=== PATIENT | female | born 1955 | race Caucasian/White ===

== ENCOUNTER 2025-03-28 11:56 | Outpatient (CLI) | payer OTHER, MEDICAID, SELFPAY ==
[2025-03-28 12:33] LABS: Hematocrit 44.0 % (37.0-47.0); Hemoglobin 14.9 g/dL (12.0-15.0); Mean Corpuscular HGB Conc 33.9 g/dl (32-36); Mean Corpuscular Hemoglobin 29.0 pg (26-34); Mean Corpuscular Volume 85.8 fl (80-100); Platelet Count Result 181 k/mm3 (150-375); Red Blood Count 5.13 M/mm3 (4.2-5.4); White Blood Count 6.7 K/mm3 (4.5-10.0)
[2025-03-28 12:43] LABS: INR 0.9; Prothrombin Time 12.6 Seconds (11.1-14.7)
[2025-03-28 12:56] LABS: Anion Gap 9 mmol/L (4-12); Blood Urea Nitrogen 21 mg/dL (7-17); Calcium 9.3 mg/dL (8.4-10.2); Carbon Dioxide 28 mmol/L (22-30); Chloride 101 mmol/L (98-107); Estimated Glomerular Filt Rate > 60; Glucose 117 mg/dL (65-110); Potassium 3.5 mmol/L (3.4-5.0); Sodium 138 mmol/L (137-145)
--- OUTSIDE RECORDS SUMMARY | 2025-03-28 13:34 | XMS_ITS | Encounter Summary ---
Author Organization [facility] Healthcare Address [address] [place] [address] Care Team Providers Care Federal Appellate Law Clerk Name Role Phone Valentino Zhao MD Unavailable Hitesh Em MD Unavailable Luca Jensen NP Primary Care Provider [phone] Luis Angel Manzanares NP Unavailable [phone] Encounter Details Date Type Department Care Team (Late st Contact Info) Description 09/10/2024 [facility] Post Discharge Follow up phone call [facility] [address] [place] [address] Evelyn Baig Social History Tobacco Use Types Packs/Day Years Used Date Smoking Tobacco: Never Smokeless Tobacco: Never Social Connection and Isolation Panel Answer Date Recorded In a typical week, how many times do you talk on the phone with family, friends, or neighbors? More than three times a week 03/06/2023 How often do you get togethe r with friends or relatives? More than three times a week 03/06/2023 How often do you attend chur ch or rastafarian services? More than 4 times per year 03/06/2023 Do you belong to any clubs o r organizations such as confucianist groups, unions, fraternal or athletic groups, or school groups? No 03/06/2023 How often do you attend meet ings of the clubs or organizations you belong to? Never 03/06/2023 Are you , , di vorced, , never , or living with a partner? 03/06/2023 AUDIT-C Answer Date Recorded Q1: How often do you have a drink containing alcohol? Never 09/03/2024 Q2: How many drinks containi ng alcohol do you have on a typical day when you are drinking? Patient does not drink Q3: How often do you have si x or more drinks on one occasion? Never 09/03/2024 Overall Financial Resource Strain (CARDIA) Answe r Date Recorded How hard is it for you to pa y for the very basics like food, housing, medical care, and heating? Somewhat hard 03/06/2023 PHQ-2 Answer Date Recorded PHQ-2 Total Score (If total score is 3 or more points, staff should administer the PHQ-9) 0 09/03/2024 Hunger Vital Sign Answer Date Recorded Within the past 12 months, y ou worried that your food would run out before you got the money to buy more. Sometimes true Within the past 12 months, t he food you bought just didn't last and you didn't have money to get more. Never true 09/2022 PRAPARE - Transportation Answer Date Re corded In the past 12 months, has l ack of transportation kept you from medical appointments or from getting medications? No 09/2022 In the past 12 months, has l ack of transportation kept you from meetings, work, or from getting things needed for daily living? No 03/06/2023 Housing Stability Vital Sign Answer Armando e Recorded In the last 12 months, was t here a time when you were not able to pay the mortgage or rent on time? No 03/06/2023 In the last 12 months, how many places have you lived? 1 03/06/2023 In the last 12 months, was t here a time when you did not have a steady place to sleep or slept in a senior living (including now)? No 03/06/2023 PHQ-9 Answer Date Recorded PHQ-9 Total Score 0 09/03/2024 Personal Safety Answer Date Recorded Have you ever been in or are you currently in a harmful physical or emotional relationship or is someone making you feel afraid or unsafe? 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 Gender Identity Not on file Sexual Orientation Not on file documented as of this encounter Plan of Treatment Not on file documented as of this encounter Visit Diagnoses Not on filedocumented in this encounter Care Teams Federal Appellate Law Clerk Relationship Specialty [place] [address] [address] [place] [address] PCP - General Family Medicine 10/14/23 [place] [address] [address] [place] [address] Consulting Physician Cardiovascular Disease 03/13/23 [place] [address] [address] [place] [address] Consulting Physician Pain Management 03/13/23 [place] [address] [address] [place] [address] Nurse Practitioner Nurse Practitioner 07/20/24 documented as of this encounter
--- OUTSIDE RECORDS SUMMARY | 2025-03-28 13:34 | XMS_ITS | Encounter Summary ---
Author Organization [facility] Healthcare Address [address] [place] [address] Care Team Providers Care Back Tender Name Role Phone Valentino Zhao MD Unavailable Hitesh Em MD Unavailable [phone] Luca Jensen NP Primary Care Provider [phone] Luis Angel Manzanares NP Unavailable [phone] Encounter Details Date Type Department Care Team (Late st Contact Info) Description 08/30/2024 [facility] Post Discharge Follow up phone call [facility] [address] [place] [address] Evelyn Baig Social History Tobacco [...] often do you attend chur ch or taoism services? More than 4 times per year 03/06/2023 Do you belong to any clubs o r organizations such as hindu groups, unions, fraternal or athletic groups, or [...] place to sleep or slept in a retirement (including now)? No 03/06/2023 PHQ-9 Answer Date Recorded PHQ-9 Total Score 0 09/03/2024 Personal Safety Answer Date Recorded Have you ever been in or are you currently in a harmful physical or emotional relationship or is someone making you feel afraid or unsafe? 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 Gender Identity Not on file Sexual Orientation Not on file documented as of this encounter Plan of Treatment Not on file documented as of this encounter Visit Diagnoses Not on filedocumented in this encounter Care Teams Back Tender Relationship Specialty [place] [address] [address] [place] [address] PCP - General Family Medicine 10/14/23 [place] [address] [address] [place] [address] Consulting Physician Cardiovascular Disease 03/13/23 [place] [address] [address] [place] [address] Consulting Physician Pain Management 03/13/23 [place] [address] [place] [address] Nurse Practitioner Nurse Practitioner 07/20/24 documented as of this encounter
--- OUTSIDE RECORDS SUMMARY | 2025-03-28 13:34 | XMS_ITS | Clinical Summary ---
Author Organization [facility] Address [address] [facility] [place] [address] Care Team Providers Care Salesperson Driver Name Role Phone Toro Mojica MD Primary Care Provider [phone] Jose Alfredo Cabrera Unavailable [phone] Source Comments [facility],non-owned Affiliates and Associated Physician Practices is amultiple site organization consisting of ambulatory clinics and hospital sitesin [place], [place], [place] and [place]. This disclosure is being madepursuant to the Care Everywhere program and may not contain all information available regarding this patient. Last updated 18.[facility] Allergies Active Allergy Reactions Criticality Noted Date Comments Codeine Itching 04/20/2016 Alc-Benzalk Cl-Fluticasone Headache High 6 migraine Prednisone 04/20/2016 Medications * Be aware that medications may not be up to date on this document. Alwaysverify current medications with the patient. lisinopril-hydroC HLOROthiazide (PRINZIDE; ZESTORETIC) 20-12.5 MG tablet Take 1 (one) tablet by mouth 2 times daily Active sertraline (ZOLOFT) 100 MG tablet Take 1 (one) tablet by mouth once daily Active budesonide-formot karena (Symbicort) 160-4.5 MCG/ACT inhaler Inhale 2 (two) puffs by mouth 2 times daily Active donepezil (Aricept) 10 MG tablet Take 1 (one) tablet by mouth once daily Active latanoprost (Xalatan) 0.005 % ophthalmic solution Instill 1 (one) drop into both eyes once daily Active aspirin (Aspirin) 81 MG chew tablet Take 1 (one) tablet by mouth once daily Active clonazePAM (KlonoPIN) 0.5 MG tablet Take 1 (one) tablet by mouth 2 times daily as needed 2 Active bismuth subsalicylate (Pepto-Bismol Max Strength) 525 MG/15ML suspension Take 30 mL by mouth every 6 hours as needed 3 Active Cholecalciferol (vitamin D3) 1.25 MG (73263 UT) capsule TAKE 1 CAPSULE EVERY 2 WEEKS BY ORAL ROUTE. 3 Active cyclobenzaprine (Flexeril) 5 MG tablet Take 1 (one) tablet by mouth once daily as needed 2 Active clopidogrel (plaVIX) 75 MG tablet 3 Active omeprazole (PriLOSEC) 20 MG capsule omeprazole 20 mg capsule,delaye d release TAKE 1 CAPSULE BY MOUTH TWICE A DAY BEFORE MEALS Active ezetimibe (Zetia) 10 MG tablet 3 Active primidone (Mysoline) 50 MG tablet TAKE 1/2 TABLET BY MOUTH DAILY X1WEEK, THEN 1 TABLET DAILY AT BEDTIME 90 tablet 4 Active levETIRAcetam (Keppra) 750 MG tabletIndications :Seizures (HCC) TAKE 1 (ONE) TABLET BY MOUTH 2 TIMES DAILY 180 tablet 3 4 Active Active Problems Problem Noted Date Diagnosed Date Seizures 07/10/2022 Family History Medical History Relation Name Comments COPD - Chronic Obstructive Pulmonary Disease Father Diabetes - Type 2 Mother Relation Name Status Comments Father Mother Sister Social History Tobacco Use Types Packs/Day Years Used Date Smoking Tobacco: Former Cigarettes 0.5 2 Smokeless Tobacco: Never Tobacco Cessation:Counseling Given: Not Answered Alcohol Use Standard Drinks/Week Comments Never 0 (1 standard drink = 0.6 oz pur e alcohol) Overall Financial Resource Strain (CARDIA) Answe r Date Recorded How hard is it for you to pa y for the very basics like food, housing, medical care, and heating? Not hard at all 07/11/2022 [facility] of Occupat ional Health - Occupational Stress Questionnaire Answer Date Recorded Do you feel stress - tense, restless, nervous, or anxious, or unable to sleep at night because your mind is troubled all the time - these days? Not at all 07/11/2022 Hunger Vital Sign Answer Date Recorded Within the past 12 months, y ou worried that your food would run out before you got the money to buy more. Never true 07/11/19 23 Within the past 12 months, t he food you bought just didn't last and you didn't have money to get more. Never true 07/11/2022 PRAPARE - Transportation Answer Date Re corded In the past 12 months, has l ack of transportation kept you from medical appointments or from getting medications? No 01/2023 In the past 12 months, has l ack of transportation kept you from meetings, work, or from getting things needed for daily living? No 07/11/2022 Housing Stability Vital Sign Answer Armando e Recorded In the last 12 months, was t here a time when you were not able to pay the mortgage or rent on time? No 07/11/2022 In the last 12 months, how many places have you lived? 1 07/11/2022 In the last 12 months, was t here a time when you did not have a steady place to sleep or slept in a longterm (including now)? 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 Gender Identity Not on file Sexual Orientation Not on file Last Filed Vital Signs Vital Sign Reading Time Taken Comments Blood Pressure 124/56 05/08/2023 11:11 AM COLLECTOR OF INTERNAL REVENUE Pulse 65 05/08/2023 11:11 AM COLLECTOR OF INTERNAL REVENUE Temperature 36.6 C (97.8 F) 05/08/2023 11:11 AM COLLECTOR OF INTERNAL REVENUE Respiratory Rate 20 07/12/2022 8:48 AM COLLECTOR OF INTERNAL REVENUE Oxygen Saturation 99% 05/08/2023 11:11 AM COLLECTOR OF INTERNAL REVENUE Inhaled Oxygen Concentration - - Weight 111.1 kg (245 lb) 05/08/2023 11:11 AM COLLECTOR OF INTERNAL REVENUE Height 167.6 cm (5' 6) 05/08/2023 11:11 AM COLLECTOR OF INTERNAL REVENUE Body Mass Index 39.54 05/08/2023 11:11 AM COLLECTOR OF INTERNAL REVENUE Plan of Treatment Health Maintenance Due Date Last Done Comments BONE DENSITY TESTING 1955 COLOGUARD (AGES 45-75) - COLON CA SCREENING 1957 COLON MONITORING 1957 COLONOSCOPY - COLON CA SCREENING 1957 CT COLONOGRAPHY - COLON CA SCREENING 1957 Colorectal Cancer Screening 1957 FIT - COLON CA SCREENING 1957 FLEX SIG - COLON CA SCREENING 1957 MAMMOGRAM 1957 HEPATITIS C SCREENING 09/16/1975 DTAP/TDAP/TD VACCINES (1 - Tdap) 1976 PNEUMOCOCCAL VACCINE 50+ (1 of 1 - PCV) 09/21/2007 ZOSTER VACCINE (1 of 2) 09/21/2007 DEPRESSION SCREENING 06/02/2024 MEDICARE AWV CALENDAR YEAR 2024 COVID-19 VACCINE (1 - season) 2025 INFLUENZA VACCINE (#1) 2025 9, 03/25/2018, 02/20/2017, Additional history exists SCREENING FOR DIABETES 07/12/2025 3, 07/11/2022, 07/10/2022 LIPID TESTING 03/06/2028 03/06/2023 Respiratory Syncytial Virus (RSV) Vaccine Pt: or over 60 yrs (1 - 1-dose 75+ series) 2032 HEPATITIS B VACCINE Aged Out No longe r eligible based on patient's age to complete this topic HIB VACCINE Aged Out No longer eligi ble based on patient's age to complete this topic HPV VACCINE Aged Out No longer eligi ble based on patient's age to complete this topic MENINGOCOCCAL (Group B) VACCINE SHARED DECISION-MAKING Aged Out No longer eligible based on patient's age to complete this topic MENINGOCOCCAL GROUPS A/C/Y/W VACCINE Aged Out No longer eligible based on patient's age to complete this topic Procedures Procedure Name Priority Date/Time Associated Diagnosis Comments COMPREHENSIVE METABOLIC PANEL DONIS 07/12/2022 4:03 AM COLLECTOR OF INTERNAL REVENUE from Last 3 Months or Most Recently Relevant to Health Maintenance Results * (ABNORMAL) COMPREHENSIVE METABOLIC PANEL (07/12/2022 4:03 AM [facility]) [facility] Glucose 91 70 - 105 mg/dL 07/12/2022 4:41 AM [facility] Sodium 141 136 - 145 mmol/L 07/12/2022 4:41 AM [facility] Potassium 4.0 3.5 - 5.1 mmol/L 07/12/2022 4:41 AM [facility] Chloride 106 98 - 107 mmol/L 07/12/2022 4:41 AM [facility] CO2 27 23 - 31 mmol/L 07/12/2022 4:41 AM [facility] Calcium 8.8 8.4 - 10.4 mg/dL 07/12/2022 4:41 AM [facility] Anion Gap 8 8 - 18 mmol/L 07/12/2022 4:41 AM [facility] BUN 14 9.8 - 20.1 mg/dL 07/12/2022 4:41 AM [facility] Creatinine 0.82 0.57 - 1.11 mg/dL 07/12/2022 4:41 AM [facility] Alkaline Phosphatase 72 40 - 150 U/L 07/12/2022 4:41 AM [facility] ALT 15 0 - 61 U/L 07/12/2022 4:41 AM [facility] AST 19 5 - 34 U/L 07/12/2022 4:41 AM [facility] Protein Total 6.2(L) 6.4 - 8.3 gm/dL 07/12/2022 4:41 AM [facility] Albumin 3.6 3.2 - 4.6 gm/dL 07/12/2022 4:41 AM [facility] Bilirubin Total 0.4 0.2 - 1.2 mg/dL 07/12/2022 4:41 AM [facility] eGFR by CKD-EPI 80(L) >=90 mL/min/1.7 3 m2 07/12/2022 4:41 AM [facility] Blood BLOOD SPECIMEN / Unknown Lab Venipuncture / Unknown 07/12/2022 4:03 AM COLLECTOR OF INTERNAL REVENUE 07/12/2022 4:17 AM [facility] Hardy Fitch MD LAB - CHEMISTRY ORDERABLES Una parson Result [facility] [address] [place] [address] from Last 3 Months or Most Recently Relevant to Health Maintenance Insurance MEDICARE MEDICAID - OUT OF STATE [id number] [place] [address] MEDICAID [facility] MANAGED MEDICARE [facility] [place] [address] Advance Directives * Full Code (Latest Code Status on File) Date Activated Date Inactivated Comments 07/11/2022 12:04 AM 07/12/2022 11:53 AM Care Teams Salesperson Driver Relationship Specialty [place] [address] [place] [phone] PCP - General Gastroenterology 07/10/22 Jose Alfredo Cabrera PA [address] [place] [phone] Physician Foreclosure Specialist 07/10/22
--- OUTSIDE RECORDS SUMMARY | 2025-03-28 13:34 | XMS_ITS | Encounter Summary ---
Author Organization [facility] Healthcare Address [address] [place] [address] Care Team Providers Care Budget Engineer Name Role Phone Valentino Zhao MD Unavailable Hitesh Em MD Unavailable [phone] Luca Jensen NP Primary Care Provider [phone] Luis Angel Manzanares NP Unavailable [phone] Reason for Visit * Reason Onset Date Comments Med Refill 03/24/2025 Encounter Details Date Type Department Care Team (Late st Contact Info) Description 03/24/2025 Telephone Family Care at [facility] [address] [place] [phone] [place] [id number] [place] [address] [address] [facility] [address] [place] [address] Med Refill Social History Tobacco Use Types Packs/Day Years [...] 03/06/2023 How often do you attend chur or sabianist services? More than 4 times per year 03/06/2023 Do you belong to any clubs o r organizations such as adventism groups, unions, fraternal or athletic groups, or [...] making you feel afraid or unsafe? 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 * Telephone Encounter - Luca Jensen NP - 03/25/2025 8:27 AM CDT She can wean down off the gabapentin, she should take one twice daily for a week, then only one at bedtime for a week, then stop it. * Telephone Encounter - Isi Nesbitt MA - 03/25/2025 8:03 AM CDT Please advise * Telephone Encounter - Gómez Martinez - 03/24/2025 3:11 PM CDT Medication Question/Clarification Medication Name(s)/Dose: gabapentin (NEURONTIN) 300 mg capsule What is the question or clarification needed? Patients son is calling stating she id having side effort from he above medication.Patient is having tingling from her knees to bottom of feet . No strength in her legs. Patient want to know should she the medication. If needed, Pharmacy(s) medication(s) should be sent to: Pharmacy on File Additional Comments: Patient would like a call today. Does message need to be routed? Yes-Action Needed documented in this encounter Plan of Treatment Not on file documented as of this encounter Visit Diagnoses Not on filedocumented in this encounter Care Teams Budget Engineer Relationship Specialty [place] [address] [address] [place] [address] PCP - General Family Medicine 10/14/23 [place] [address] [address] [facility] [address] [place] [address] Consulting Physician Cardiovascular Disease 03/13/23 [place] [address] [address] [facility] [address] [place] [address] Consulting Physician Pain Management 03/13/23 [place] [address] [address] [facility] [address] [place] [address] Nurse Practitioner Nurse Practitioner 07/20/24 documented as of this encounter
--- OUTSIDE RECORDS SUMMARY | 2025-03-28 13:34 | XMS_ITS | Encounter Summary ---
Author Organization [facility] Healthcare Address [address] [place] [address] Care Team Providers Care Fitter Tacker Name Role Phone Valentino Zhao MD Unavailable Hitesh Em MD Unavailable Luca Jensen NP Primary Care Provider [phone] Luis Angel Manzanares NP Unavailable [phone] Encounter Details Date Type Department Care Team (Late st Contact Info) Description 01/25/2025 Results Follow-Up Family Care at [facility] [address] [phone] [place] [address] [facility] [address] [place] [address] Screening Mammogram Bilateral W Rito Social History Tobacco Use Types Packs/Day Years [...] often do you attend chur ch or episcopalian services? More than 4 times per year [...] place to sleep or slept in a snf (including now)? 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 Gender Identity Not on file Sexual Orientation Not on file documented as of this encounter Plan of Treatment Not on file documented as of this encounter Visit Diagnoses Not on filedocumented in this encounter Care Teams Fitter Tacker Relationship Specialty [place] [address] [address] [place] [address] PCP - General Family Medicine 10/14/23 [place] [address] [address] [place] [address] Consulting Physician Cardiovascular Disease 03/13/23 [place] [address] [address] [place] [address] Consulting Physician Pain Management 03/13/23 [place] [address] [address] [facility] [address] [place] [address] Nurse Practitioner Nurse Practitioner 07/20/24 documented as of this encounter
--- OUTSIDE RECORDS SUMMARY | 2025-03-28 13:34 | XMS_ITS | Clinical Summary ---
Author Organization [facility] Address [address] [place] [address] Care Team Providers Care Patient Financial Services Manager Name Role Phone Toro Mojica MD Primary Care Provider Unavail able Allergies Active Allergy Reactions Criticality Noted Date Comments Atenolol Fatigue High 08/17/2018 Codeine Unknown 05/22/2021 Prednisone Unknown 05/22/2021 Statins Other (see comment) High 07/20/2018 Sulfa Antibiotics Unknown 05/22/2021 Medications VENTOLIN HFA 108 (90 Base) MCG/ACT inhaler Inhale 2 puffs into the lungs 3 (three) times daily as needed. 05/11/20 22 Active SYMBICORT 160-4.5 MCG/ACT inhaler Inhale 2 puffs into the lungs 2 (two) times daily. 03/06/20 22 Active vitamin D3, cholecalciferol, 1.25 MG (10034 UT) capsule Take 50,000 Units by mouth see administration instructions. 50,000 units every other week 05/16/20 22 Active clonazePAM (KLONOPIN) 0.5 MG tablet Take 0.5 mg by mouth 2 (two) times daily as needed. 01/25/20 22 Active cyclobenzaprine (FLEXERIL) 5 MG tablet Take 5 mg by mouth nightly as needed. 05/16/20 22 Active donepezil (ARICEPT) 10 MG Tab Take 10 mg by mouth daily. 05/16/20 22 Active ibuprofen (MOTRIN) 800 MG tablet Take 800 mg by mouth 3 (three) times daily as needed. 06/03/19 23 Active VASCEPA 1 g capsule Take 1 g by mouth 4 (four) times daily. 10/17/20 22 Active latanoprost (XALATAN) 0.005 % ophthalmic solution Place 1 drop into both eyes nightly. 05/29/20 Active lisinopril-hydroCH LOROthiazide (ZESTORETIC) 20-12.5 MG tablet Take 1 tablet by mouth 2 (two) times daily. 04/04/20 Active sertraline (ZOLOFT) 100 MG tablet Take 100 mg by mouth daily. 05/16/20 Active diclofenac sodium (VOLTAREN) 1 % gel Apply topically 4 (four) times daily. Active TRIAMCINOLONE ACETONIDE, TOP, 0.05 % Ointment Acti ve dextromethorphan ER (DELSYM) 30 MG/5ML liquid Take 5 mLs (30 mg total) by mouth every 12 (twelve) hours as needed (Sore throat and/or cough). 280 mL 06/13/19 23 Active bismuth subsalicylate (PEPTO-BISMOL MAX ST) 525 MG/15ML Suspension suspension Take 30 mLs by mouth every 6 (six) hours as needed (Abdominal cramping and/or diarrhea). 960 mL 06/13/19 23 Active ondansetron (ZOFRAN-ODT) 4 MG disintegrating tablet Take 1 tablet (4 mg total) by mouth every 4 (four) hours as needed for Nausea. 20 tablet 06/13/19 23 Active sucralfate (CARAFATE) 1 G tablet Take 1 tablet (1 g total) by mouth 4 (four) times daily. 120 tablet 06/13/19 Active naproxen (NAPROSYN) 500 MG tablet Take 1 tablet (500 mg total) by mouth 2 (two) times daily as needed (Pain. Please take with meals). 60 tablet 06/13/19 23 Active aspirin 81 MG chewable tablet Chew 1 tablet (81 mg total) by mouth daily. 30 tablet 06/13/19 Active Active Problems Problem Noted Date Diagnosed Date Superior mesenteric artery stenosis 06/27/2022 Supraventricular tachycardia 03/03/2019 Overview (06/18/2022): [facility] enroll Venous insufficiency 03/03/2019 Edema 08/17/2018 Dyslipidemia 07/20/2018 Family history of heart disease 07/20/2018 Hypertension 07/20/2018 Overview (06/18/2022): [facility] Enroll Obesity 07/20/2018 Obstructive sleep apnea (adult) (pediatric) 07/03 Palpitations 07/20/2018 Immunizations Immunization Administration Dates Next Due Influenza Adult (Generic) 03/09/2019,,02/20/2017,03/05/2016,2014 Family History Medical History Relation Comments Aneurysm Brother 1 Liver Disease Brother 2 Heart Disease Brother 3 COPD Father Heart Disease Mother Heart Disease Sister 1 Heart Disease Sister 2 Kidney Disease Sister 2 Relation Status Comments Brother 1 Brother 2 Brother 3 Alive Father Mother Sister 1 Sister 2 Social History Tobacco Use Types Packs/Day Years Used Date Smoking Tobacco: Former Cigarettes 0.5 3 1 977 - 1980 Smokeless Tobacco: Never Tobacco Cessation:Counseling Given: Not Answered Alcohol Use Standard Drinks/Week Comments Never 0 (1 standard drink = 0.6 oz pur e alcohol) Comments No Sex and Gender Information Value Date Recorded Sex Assigned at Not on file Legal Sex Female 6:06 PM CDT Gender Identity Not on file Sexual Orientation Not on file Last Filed Vital Signs Vital Sign Reading Time Taken Comments Blood Pressure 140/90 06/27/2022 1:30 PM TAPERING MACHINE OPERATOR Pulse 73 06/27/2022 1:30 PM TAPERING MACHINE OPERATOR Temperature 36.2 C (97.1 F) 06/12/2022 4:48 PM TAPERING MACHINE OPERATOR Respiratory Rate 19 06/13/2022 1:00 AM TAPERING MACHINE OPERATOR Oxygen Saturation 98% 06/13/2022 1:00 AM TAPERING MACHINE OPERATOR Inhaled Oxygen Concentration - - Weight 116.3 kg (256 lb 4.8 oz) 06/27/2022 1:30 PM TAPERING MACHINE OPERATOR Height 167.6 cm (5' 6) 06/27/2022 1:30 PM TAPERING MACHINE OPERATOR Body Mass Index 41.37 06/27/2022 1:30 PM TAPERING MACHINE OPERATOR Plan of Treatment Health Maintenance Due Date Last Done Comments ASCVD LDL 1957 Colorectal Cancer Screening Colonoscopy (10 Years) 1957 Hepatitis C 09/21/1975 DTaP, Tdap and Td Vaccines (1 - Tdap) 1976 Mammogram Screening 1997 Pneumococcal Vaccine: 50+ Years (1 of 1 - PCV) 09/21/2007 Zoster Vaccines (1 of 2) 09/21/2007 RSV Immunization or 60+ Years (1 - Risk 60-74 years 1-dose series) 2017 Annual Medicare Wellness Visit 2022 Dexa Scan (General) 2022 COVID-19 Vaccine ( - season) 2025 Influenza Adult (#1) 2025 03/09/2019, 03/25/2018, 02/20/2017, Additional history exists Hepatitis A Vaccines Aged Out No long er eligible based on patient's age to complete this topic Meningococcal B Vaccine Aged Out No l onger eligible based on patient's age to complete this topic Meningococcal Vaccine Aged Out No magda lakeisha eligible based on patient's age to complete this topic RSV Immunizations Under 20 Months Aged Out No longer eligible based on patient's age to complete this topic Insurance MEDICARE MEDICAID Care Teams Patient Financial Services Manager Relationship Specialty Start Date End Date Toro Mojica MD PCP - General INTERNAL MEDICINE 06/12/22
--- OUTSIDE RECORDS SUMMARY | 2025-03-28 13:34 | XMS_ITS | Encounter Summary ---
Author Organization [facility] Healthcare Address [address] [place] [address] Care Team Providers Care Director Of Women'S Services Name Role Phone Valentino Zhao MD Unavailable Hitesh Em MD Unavailable Luca Jensen NP Primary Care Provider Luis Angel Manzanares NP Unavailable [phone] Reason for Visit * Reason Onset Date Comments Medical Question/Miscellaneous 03/22/2025 Encounter Details Date Type Department Care Team (Late st Contact Info) Description 03/22/2025 Telephone Family Care at [facility] [address] [address] Luca Jensen, VIVIANA [id number] [place] [address] [facility] [address] [facility] [address] [place] [address] Medical Question/Miscellaneous Social History Tobacco Use Types Packs/Day Years [...] often do you attend chur ch or scientologist services? More than 4 times per year 03/06/2023 Do you belong to any clubs o r organizations such as episcopal groups, unions, fraternal or athletic groups, or [...] place to sleep or slept in a group home (including now)? 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 Does message need to be routed? Yes-Action Needed documented in this encounter Plan of Treatment Not on file documented as of this encounter Visit Diagnoses Not on filedocumented in this encounter Care Teams Director Of Women'S Services Relationship Specialty [place] [address] [address] [place] [address] PCP - General Family Medicine 10/14/23 [place] [address] [address] [place] [address] Consulting Physician Cardiovascular Disease 03/13/23 [place] [address] [address] [place] [address] Consulting Physician Pain Management 03/13/23 [place] [address] [address] [place] [address] Nurse Practitioner Nurse Practitioner 07/20/24 documented as of this encounter
--- OUTSIDE RECORDS SUMMARY | 2025-03-28 13:34 | XMS_ITS | Encounter Summary ---
Author Organization [facility] Healthcare Address [address] [place] [address] Care Team Providers Care Welding Setter Name Role Phone Valentino Zhao MD Unavailable Hitesh Em MD Unavailable Luca Jensen NP Primary Care Provider [phone] Luis Angel Manzanares NP Unavailable [phone] Encounter Details Date Type Department Care Team (Late st Contact Info) Description 03/08/2024 Orders Only [facility] Information Management [address] [place] [address] Scanning, Provider Social History Tobacco Use Types Packs/Day Years [...] often do you attend chur ch or moravian services? More than 4 times per year 03/06/2023 Do you belong to any clubs o r organizations such as adventist groups, unions, fraternal or athletic groups, or school groups? No 03/06/2023 How often do you attend meet ings of the clubs or organizations you belong to? Never 03/06/2023 Are you , , di vorced, , never , or living with a partner? 03/06/2023 AUDIT-C Answer Date Recorded Q1: How often do you have a drink containing alcohol? Never 03/19/2023 Q2: How many drinks containi ng alcohol do you have on a typical day when you are drinking? Patient does not drink 3 Frequency of Binge Drinking Not on file 03/02 Overall Financial Resource Strain (CARDIA) Answe r Date Recorded How hard is it for you to pa y for the very basics like food, housing, medical care, and heating? Somewhat hard 03/06/2023 PHQ-2 Answer Date Recorded PHQ-2 Total Score (If total score is 3 or more points, staff should administer the PHQ-9) 0 10/14/2023 Hunger Vital Sign Answer Date Recorded Within [...] place to sleep or slept in a chcf (including now)? No 03/06/2023 Personal Safety Answer Date Recorded Have you ever been in or are you currently in a harmful physical or emotional relationship or is someone making you feel afraid or unsafe? 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 Gender Identity Not on file Sexual Orientation Not on file documented as of this encounter Plan of Treatment Not on file documented as of this encounter Procedures Procedure Name Priority Date/Time Associated Diagnosis Comments SCAN - RADIOLOGY/IMAGING 03/08/2024 documented in this encounter Results * SCAN - RADIOLOGY/IMAGING (03/08/2024) Anatomical Region Laterality Modality Other us Provider Scanning Edited Result - Final documented in this encounter Visit Diagnoses Not on filedocumented in this encounter Additional Health Concerns Infection Onset Date Last Indicated Resolved Time COVID: Suspected 08/21/2024 08/21/2024 08/21/2024 10:51 PM CDT documented as of this encounter Care Teams Welding Setter Relationship Specialty [place] [address] [address] [place] [address] PCP - General Family Medicine 10/14/23 [place] [address] [address] [place] [address] Consulting Physician Cardiovascular Disease 03/13/23 [place] [address] [address] [place] [address] Consulting Physician Pain Management 03/13/23 [place] [address] [address] [place] [address] Nurse Practitioner Nurse Practitioner 07/20/24 documented as of this encounter
--- OUTSIDE RECORDS SUMMARY | 2025-03-28 13:34 | XMS_ITS | Encounter Summary ---
Author Organization [facility] Address [address] [place] [address] Care Team Providers Care Landscape Photographer Name Role Phone Toro Mojica MD Primary Care Provider Unavail able Encounter Details Date Type Department Care Team (Late st Contact Info) Description 05/23/2021 Prep for Procedure [facility] [place] [address] Gray Vega, DO [address] [place] [address] [address] [place] [address] Social History Tobacco Use Types Packs/Day Years Used Date Smoking Tobacco: Former Cigarettes 0.5 3 1 977 - 8158 Smokeless Tobacco: Never Alcohol Use Standard Drinks/Week Comments Never 0 (1 standard drink = 0.6 oz pur e alcohol) Comments Unknown Sex and Gender Information Value Date Recorded Sex Assigned at Not on file Legal Sex Female 6:06 PM CDT Gender Identity Not on file Sexual Orientation Not on file COVID-19 Exposure Response Date Recorded In the last month, have you been in contact with someone who was confirmed or suspected to have Coronavirus / COVID-19? No / Unsure 05/23/2021 3:29 PM EMERGENCY MEDICAL TECH documented as of this encounter Plan of Treatment Not on file documented as of this encounter Results * (ABNORMAL) CORONAVIRUS (COVID 19) (06/04/2021 11:55 AM EMERGENCY MEDICAL TECH) SPEC DESCRIPTION NASAL 06/04/19 11:55 AM EMERGENCY MEDICAL TECH [facility] CORONAVIRUS SARS COV 2 PCR (RESP) POSITIVE(A A) NEGATIVE 06/05/2021 6:13 AM EMERGENCY MEDICAL TECH [facility] Comment: THE SARS-CoV-2 TEST HAS BEEN AUTHORIZED BY THE FDA UNDER AN EUA FOR USE BY AUTHORIZED LABORATORIES. PERFORMED BY NUCLEIC ACID AMPLIFICATION PCR FIRST TEST NO 06/04/2021 11:55 AM EMERGENCY MEDICAL TECH [facility] EMPLOYED IN HEALTHCARE UNKNOWN 06/04/2021 11:55 AM EMERGENCY MEDICAL TECH [facility] SYMPTOMATIC DEFINED BY CDC NO 06/04/2021 11:55 AM EMERGENCY MEDICAL TECH [facility] HOSPITALIZATION STATUS NO 06/04/2021 11:55 AM EMERGENCY MEDICAL TECH [facility] PATIENT IN ICU NO 06/04/2021 11:55 AM EMERGENCY MEDICAL TECH [facility] RESIDENT OF [facility] UNKNOWN 06/04/2021 11:55 AM EMERGENCY MEDICAL TECH [facility] NASAL STRUCTURE / Unknown 06/04/2021 11:55 AM EMERGENCY MEDICAL TECH Gray Vega DO MICROBIOLOGY - GENERAL ORDERABL ES Final Result [facility] [address] [place] [address], [place] [phone] [facility] [address] [place] [id number], [place] [phone] documented in this encounter Visit Diagnoses Diagnosis GERD (gastroesophageal reflux disease)- Primary Esophageal reflux documented in this encounter Additional Health Concerns Infection Onset Date Last Indicated Resolved Time COVID-19 Rule Out 06/04/2021 06/04/2021 06/05/2021 6:13 AM EMERGENCY MEDICAL TECH COVID-19 Confirmed 06/04/2021 06/04/2021 12:32 AM EMERGENCY MEDICAL TECH documented as of this encounter Care Teams Landscape Photographer Relationship Specialty Start Date End Date Toro Mojica MD PCP - General INTERNAL MEDICINE 06/12/22 documented as of this encounter
--- OUTSIDE RECORDS SUMMARY | 2025-03-28 13:34 | XMS_ITS | Encounter Summary ---
Author Organization [facility] Healthcare Address [address] [place] [address] Care Team Providers Care Corporate Staff Accountant Name Role Phone Valentino Zhao MD Unavailable Hitesh Em MD Unavailable Luca Jensen NP Primary Care Provider [phone] Luis Angel Manzanares NP Unavailable [phone] Encounter Details Date Type Department Care Team (Late st Contact Info) Description 09/07/2024 [facility] Post Discharge Follow up phone call [facility] [address] [place] [address] Evelyn Baig Social History Tobacco [...] often do you attend chur ch or orthodox services? 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 Gender Identity Not on file Sexual Orientation Not on file documented as of this encounter Plan of Treatment Not on file documented as of this encounter Visit Diagnoses Not on filedocumented in this encounter Care Teams Corporate Staff Accountant Relationship Specialty [place] [address] [address] [place] [address] PCP - General Family Medicine 10/14/23 [place] [address] [address] [place] [address] Consulting Physician Cardiovascular Disease 03/13/23 [place] [address] [address] [place] [address] Consulting Physician Pain Management 03/13/23 [place] [address] [address] [place] [address] Nurse Practitioner Nurse Practitioner 07/20/24 documented as of this encounter
--- OUTSIDE RECORDS SUMMARY | 2025-03-28 13:34 | XMS_ITS | Clinical Summary ---
Author Organization [facility] Address [address] [place] [id number] Care Team Providers Care Inspector Barrel Name Role Phone Valentino Zhao MD Unavailable Hitesh Em MD Unavailable [phone] Luca Jensen NP Primary Care Provider Luis Angel Manzanares NP Unavailable [phone] Allergies Active Allergy Reactions Criticality Noted Date Comments Atenolol Fatigue High 08/17/2018 Piutchs-Rti-Hho Reductase Inhibitors Fatigue,Muscle pain,Other (See comments) High 07/20/2018 Weakness lower extremities cannot walk Sulfamethoxazole-Trime thoprim Hives Medium 03/13/2024 Unclassified Drug Headache High 05/09/2016 migraine Medications latanoprost (XALATAN) 0.005 % ophthalmic solution Administer 1 drop into both eyes daily Active multivitamin-min erals-lutein tablet Take 1 tablet by mouth daily Active alirocumab (Praluent Pen) 150 mg/mL pen injector Inject 150 mg under the skin every 14 (fourteen) days Next shot is 03/12/23 Active aspirin 81 mg enteric coated tablet Take 1 tablet (81 mg total) by mouth daily 90 tablet 3 4 Active cholecalciferol (VITAMIN D-3) 50,000 unit capsule Take 1 capsule (50,000 Units total) by mouth once a week 12 capsule 3 4 Active Additional Information Patient taking differently:50,000 Units oral Weekly,Taking every other week, Reported on 01/25/2025 donepeziL (ARICEPT) 10 mg tablet Take 1 tablet (10 mg total) by mouth nightly 90 tablet 4 4 Active lidocaine (LIDODERM) 5 %Indications:Spi nal stenosis of lumbar region with neurogenic claudication Place 1 patch on the skin daily Apply to painful area 12 hours per day, remove for 12 hours. 90 patch 4 4 Active hydrOXYzine (ATARAX) 50 mg tabletIndication s:Hives Take 1 tablet (50 mg total) by mouth every 6 (six) hours as needed for itching 30 tablet 4 Active triamcinolone (KENALOG) 0.1 % creamIndications :Hives Apply to affected area 1-2 times daily as needed. Avoid face and groin. 80 g 1 4 Active polyethylene glycol (GoLYTELY) 236-22.74-6.74 -5.86 gram solutionIndicati ons:Bowel Evacuation Mix as directed. At 4:00 pm, begin drinking one half of the mixed solution; you will have until 7:00 pm to finish. At 10 pm drink the second half of the mixed solution, you have till midnight to finish. 4000 mL 4 Active icosapent ethyL (Vascepa) 1 gram capsuleIndicatio ns:Dyslipidemia Take 1 capsule (1 g total) by mouth 2 (two) times a day 180 capsule 3 5 Active hydrALAZINE (APRESOLINE) 25 mg tabletIndication s:hypertension Take 1 tablet (25 mg total) by mouth 3 (three) times a day as needed (CHECK YOUR BP THREE TIMES A DAY - IF YOUR SBP (TOP #) GREATER THAN 160 - TAKE THIS MEDICATION) 30 tablet 1 5 Active levETIRAcetam (KEPPRA) 750 mg tablet TAKE 1 TABLET BY MOUTH TWICE A DAY 180 tablet 3 5 Active clopidogreL (PLAVIX) 75 mg tablet TAKE 1 TABLET BY MOUTH EVERY DAY 90 tablet 3 5 Active lisinopril-hydro CHLOROthiazide (ZESTORETIC) 20-12.5 mg per tablet TAKE 1 TABLET BY MOUTH TWICE A DAY 200 tablet 1 5 Active sertraline (ZOLOFT) 100 mg tablet TAKE 1 TABLET BY MOUTH EVERY DAY 90 tablet 3 5 Active naloxone (NARCAN) 4 mg/actuation spray,non-aeroso l Administer 1 spray into affected nostril(s) as needed for opioid reversal or respiratory depression Call 911. Administer a single spray in one nostril. Repeat every 3 minutes as needed if no or minimal response. 1 each 5 Active oxyCODONE-acetam inophen (PERCOCET) 5-325 mg per tabletIndication s:Pain Take 1 tablet by mouth 2 (two) times a day as needed for pain 60 tablet 5 025 Active gabapentin (NEURONTIN) 300 mg capsuleIndicatio ns:Neuropathic Pain Take 1 capsule (300 mg total) by mouth 3 (three) times a day For post-herpetic neuralgia: Take 1 tablet on day 1, Then take 2 tablets on day 2, Then take 3 tablets on day 3 and every day after that as instructed by your doctor. 90 capsule 11 5 026 Active oxyCODONE-acetam inophen (PERCOCET) 5-325 mg per tabletIndication s:Pain Take 1 tablet by mouth 2 (two) times a day as needed for pain 60 tablet 5 025 Active Problems Problem Noted Date Diagnosed Date Neurological dysfunction 09/03/2024 SOB (shortness of breath) 09/03/2024 Frailty syndrome in geriatric patient 09/03/2024 Dysarthria 09/03/2024 Weakness of right upper extremity 09/03/2024 TIA (transient ischemic attack) 08/24/2024 Asthma 08/22/2024 Bandemia 08/22/2024 Major depressive disorder, recurrent, moderate 1 Assessment & Plan (12/22/2024 1:22 PM CDT): Sertraline 100 mg daily Stable chronic condition Assessment & Plan (03/18/2024 3:18 PM CDT): Sertraline 100 mg daily Trazodone 50 mg nightly p.r.n. insomnia At risk for allergic reaction to medication 03/02 Assessment & Plan (03/16/2024 3:45 PM CDT): Originally had allergic reaction to Bactrim, switch to Keflex still having ongoing widespread rash I am concerned she may also be allergic to Keflex Discontinue all antibiotic therapy Hives 03/16/2024 Class 3 severe obesity due t o excess calories with serious comorbidity and body mass index (BMI) of 40.0 to 44.9 in adult 03/16/2024 Assessment & Plan (12/22/2024 1:23 PM CDT): BMI follow-up: Education provided Assessment & Plan (08/30/2024 1:24 PM CDT): Plan for weight loss is to decrease calories in diet and increase activity Assessment & Plan (06/08/2024 1:15 PM EYEGLASS CUTTER): Wt Readings from Last 3 Encounters: 06/08/24 115.2 kg (254 lb) 04/06/24 113.9 kg (251 lb) 03/16/24 113.4 kg (250 lb) BMI follow-up: Education provided Assessment & Plan (03/16/2024 3:51 PM CDT): BMI follow-up: Education provided Encounter for screening for malignant neoplasm o f colon 03/05/2024 Hospital discharge follow-up 02/26/2024 Assessment & Plan (02/26/2024 9:07 AM CDT): I have personally reviewed all notes including consult notes, imaging and labs. I have also reconciled the medications with the patient. I, Nicole Dumont NP have personally reviewed pertinent Hospital/ER/Office Visit data including [employer] and Care Everywhere if available. I have noted any changes. Chronic pain syndrome 02/19/2024 Memory loss 08/25/2023 Assessment & Plan (06/08/2024 1:16 PM EYEGLASS CUTTER): Management by Neurology Mild per recent exam Aricept 10 mg nightly Assessment & Plan (03/05/2024 11:06 AM CDT): Management by Neurology Aricept l 10 mg nightly Essential tremor 08/25/2023 Assessment & Plan (12/22/2024 1:25 PM CDT): Management by Neurology Assessment & Plan (10/14/2023 1:13 PM CDT): Continue monitoring with neurology Cervical dystonia 08/25/2023 Seizures, generalized convulsive 08/25/2023 Assessment & Plan (03/05/2024 11:06 AM CDT): Management by Neurology Levetiracetam 750 mg b.i.d. Primidone 50 mg nightly Physical debility 06/16/2023 Assessment & Plan (03/16/2024 3:53 PM CDT): The patient has a mobility limitation that significantly impairs his/her ability to participate in one or more mobility-related activities of daily living (MRADLS) such as toileting, feeding, dressing, grooming, and bathing The patient has upper extremity function and other physical and mental capabilities needed to safely self-propel the manual wheelchair that is provided in the home during a typical day and has a caregiver who is available, willing and able to aid with the wheelchair (karsten Guerrero) Spinal stenosis of lumbar re gion with neurogenic claudication 03/19/2023 Assessment & Plan (12/22/2024 1:23 PM CDT): Managed by Dr. Em pain management Percocet 5-325 b.i.d. PRN Assessment & Plan (06/08/2024 1:15 PM EYEGLASS CUTTER): Managed by Dr. Em pain management Percocet 5-325 mg b.i.d. p.r.n. Assessment & Plan (03/05/2024 11:08 AM CDT): Managed by Dr. Em pain management Percocet 5-325 mg b.i.d. p.r.n. Assessment & Plan (10/14/2023 1:15 PM CDT): Continue care with pain management - she would benefit from a hospital bed she can adjust to decrease the pressure from the low back. Radiculopathy, lumbosacral region 03/19/2023 Syncope 03/17/2023 Peripheral arterial occlusive disease 08/29/2022 Assessment & Plan (03/05/2024 11:05 AM CDT): Management by vascular alirocumab (Praluent Pen) 150 mg/mL pen injector every 2 weeks Superior mesenteric artery syndrome 07/02/2022 Abdominal varicosities 07/01/2022 Anxiety 07/01/2022 Chronic vascular insufficiency of intestine 06/04 Gastroesophageal reflux disease 07/01/2022 Insomnia 07/01/2022 Generalized anxiety disorder 07/01/2022 Glaucoma 07/01/2022 Abnormal vaginal bleeding 07/01/2022 Allergic rhinitis 07/01/2022 Greater trochanteric pain syndrome 07/01/2022 Seizure disorder 07/01/2022 Assessment & Plan (12/22/2024 1:26 PM CDT): Levetiracetam 750 mg b.i.d. Neuropathy 07/01/2022 Mesenteric artery stenosis 06/27/2022 Overview (10/14/2023): identified on outside CT Supraventricular tachycardia 03/03/2019 Overview (10/14/2023): [facility] enroll Supraventricular tachycardia 03/03/2019 Overview (10/14/2023): [facility]CM enroll Venous insufficiency 03/03/2019 Arthritis of hand 10/14/2018 Dyslipidemia 07/20/2018 Assessment & Plan (06/08/2024 1:16 PM EYEGLASS CUTTER): Management by Cardiology alirocumab (Praluent Pen) every 2 weeks Hypertension 07/20/2018 Overview (04/03/2023): [facility]CM Enroll [facility]CM Enroll Assessment & Plan (12/22/2024 1:21 PM CDT): BP Readings from Last 3 Encounters: 12/22/24 128/84 10/28/24 137/59 10/06/24 150/69 Stable chronic condition . Tremor may affect electronic BP measurement. - Continue home BP monitoring. -Hydralazine 25 mg t.i.d. -Lisinopril HCTZ 20-12.5 mg b.i.d. - Assessment & Plan (06/08/2024 1:14 PM EYEGLASS CUTTER): BP Readings from Last 3 Encounters: 06/08/24 130/78 04/20/24 137/56 04/06/24 145/80 Recommend manual blood pressures with her tremor Better on rechecked Controlled chronic condition Lisinopril-hydrochlorothiazide 20-12.5 mg b.i.d. Assessment & Plan (03/05/2024 11:07 AM CDT): BP Readings from Last 3 Encounters: 03/05/24 121/65 02/26/24 130/69 02/19/24 134/52 Controlled chronic condition Lisinopril-HCTZ 20-12.5 mg daily Assessment & Plan (02/18/2024 7:34 AM CDT): Her b/p is 82/59 which is a little lower than she has been She has no symptoms of syncope or weakness She reports her pressure will run this low at home with feelings of light headedness with change in posture I am asking her to hold her amlodipine for five days and report her blood pressures. Assessment & Plan (10/14/2023 1:13 PM CDT): B/p goal <140/90 Today - 120/79 Continue - lisinopril, hctz, amlodipine Chronic stable condition Palpitations 07/20/2018 VANESSA (obstructive sleep apnea) 07/20/2018 Gout 08/06/2017 Arthralgia of left foot 07/29/2017 Hyperlipidemia 06/18/2017 Assessment & Plan (10/14/2023 1:13 PM CDT): Continue praluent Condition stable Contact dermatitis 04/22/2017 Bilateral tinnitus 02/20/2017 Vitamin D deficiency 10/02/2016 Resolved Problems Problem Noted Date Diagnosed Date Resolved Date Chest tightness 09/03/2024 12/22/2024 Acute cystitis without hematuria 09/03/2024 12/22/2024 Moderate protein-calorie malnutrition 09/03/2024 12/22/2024 Seizure-like activity 09/03/20242024 Neurological symptoms 08/21/20242024 Shoulder strain 10/14/2023 03/05/2024 Parkinson's disease 03/17/2023 12/18/19 Malaise 03/05/2023 12/22/2024 Ingrowing toenail 08/29/2022 12/22/2024 Dyspeptic diarrhea 07/19/2022 Abdominal pain 07/02/2022 12/22/2024 Depressive disorder 07/01/2022 03/18/20 24 Assessment & Plan (03/05/2024 11:08 AM CDT): Sertraline 100 mg daily Trazodone 50 mg nightly p.r.n. insomnia Calf pain 07/01/2022 12/22/2024 Ingrowing nail 07/01/2022 12/22/2024 Low back pain 07/01/2022 12/22/2024 Muscle strain of right shoulder 07/01/2022 12/22/2024 Nausea and vomiting 07/01/2022 12/23/19 25 Acute sciatica 09/26/2020 12/22/2024 Acute gastroenteritis 09/20/20192024 Acute otitis media 06/14/2019 5 Memory impairment 06/14/2019 04/10/2024 Acute folliculitis 01/06/2019 Sleep apnea 09/03/2018 03/05/2024 Edema 08/17/2018 12/22/2024 Acute pharyngitis 05/28/2018 12/22/2024 Constipation 03/25/2018 12/22/2024 Obesity (BMI 30-39.9) 02/04/20182023 Assessment & Plan (03/05/2024 10:44 AM CDT): BMI follow-up: Education provided Assessment & Plan (02/26/2024 9:08 AM CDT): BMI follow-up: Education provided Cramps of lower extremity 06/18/2017 Spasm 04/22/2017 03/05/2024 Influenza vaccination admini stered at current visit 02/20/2017 03/05/2024 Edema of lower extremity 12/04/2016 Acute sinusitis 05/15/2016 12/22/2024 Bronchitis 05/15/2016 12/22/2024 Encounters Date Type Department Care Team Description 03/24/2025 Telephone [facility] at [address] [phone] Luca Jensen NP Med Refill 03/22/2025 Telephone [facility] at [address] [phone] Luca Jensen NP Medical Question/Miscellaneo us 03/17/2025 Telephone [facility] [address] [place] [phone] Hellen Angel 03/13/2025 5:38 PM CDT - 03/13/2025 11:02 PM CDT Emergency [facility] Emergency Department [address] [place] [phone] Kingston Galdamez MD Leg pain, diffuse, left (Primary Dx); Lightheadedness Discharge Disposition: Discharge to home or self care 03/02/2025 9:36 PM CDT - 03/03/2025 2:38 AM CDT Emergency [facility] Emergency Department [address] [place] [phone] Mulu Juan MD Left leg pain (Primary Dx); Intermittent claudication; Peripheral vascular disease Discharge Disposition: Discharge to home or self care 02/02/2025 Telephone [facility] [address] [place] [address] [phone] [place] [phone] Madison Roberson 01/25/2025 9:44 AM CDT - 01/25/2025 11:59 PM CDT Hospital Encounter [facility] Radiology [address] [place] [phone] Breast cancer screening by mammogram Discharge Disposition: Discharge to home or self care 01/25/2025 9:00 AM CDT - 01/25/2025 11:59 PM CDT Hospital Encounter [facility] [address] [place] [phone] Luis Angel Manzanares NP Spinal stenosis of lumbar region with neurogenic claudication (Primary Dx); Radiculopathy, lumbosacral region Discharge Disposition: Discharge to home or self care 01/25/2025 Results Follow-Up [facility] at [address] [place] [phone] Nicole Dumont NP Screening Mammogram Bilateral W Rito from Last 3 Months Immunizations Immunization Administration Dates Next Due Influenza, Quadrivalent, Spl it, Intramuscular 03/09/2019,02/20/2017,03/05/2016,04/03 Influenza, Quadrivalent, Spl it, Preservative Free, Intramuscular 03/25/2018 Influenza, Unspecified 04/15/2024,2022(Deferred: Patient Refused),04/09/2023(Deferred: Patient Refused),04/07/2023(Deferred: Patient Refused),04/06/2023(Deferred: Patient Refused),03/15/2023(Deferred: Patient Refused),12/31/2022(Deferred: Patient Refused),03/09/2019,03/25/2018, 017,03/05/2016,04/03/2015 Surgical History Surgery Date Site/Laterality Comments TUBAL LIGATION Medical History Medical History Date Comments Asthma Hypertension Depression Sleep apnea Anxiety Epilepsy (HCC) Arthritis Tinnitus Lymphedema Fatigue Bronchitis Family History Medical History Relation Name Comments Brain Aneurysm Brother Diabetes Brother Diabetes Mother Brain Aneurysm Mother's Brother Brain Aneurysm Sister Diabetes Sister Peripheral vascular disease Sister Breast cancer Neg Hx Ovarian cancer Neg Hx Pancreatic cancer Neg Hx Prostate cancer Neg Hx Relation Name Status Comments Brother Father Mother Mother's Brother Sister Social History Tobacco Use Types Packs/Day Years Used Date Smoking Tobacco: Never Smokeless Tobacco: Never Tobacco Cessation:Counseling Given: No Social Connection and Isolation Panel Answer Date Recorded In a typical week, how many times do you talk on the phone with family, friends, or neighbors? More than three times a week 03/06/2023 How often do you get togethe r with friends or relatives? More than three times a week 03/06/2023 How often do you attend chur or rastafari services? More than 4 times per year 03/06/2023 Do you belong to any clubs o r organizations such as jainism groups, unions, fraternal or athletic groups, or [...] place to sleep or slept in a mcfp (including now)? No 03/06/2023 PHQ-9 Answer Date [...] on file Legal Sex Female 6:26 PM EYEGLASS CUTTER Gender Identity Not on file Sexual Orientation Not on file Obstetrics History Para Term AB IAB SAB Ectopic Multiple Livin g Live Births 1 1 1 Date Outcome GA Total Labor Labor/2nd/3rd Weight Sex Type Anes PTL Lili A1 A5 Name Clin Term Last Filed Vital Signs Vital Sign Reading Time Taken Comments Blood Pressure 152/67 03/13/2025 10:45 PM CDT Pulse 69 03/13/2025 10:50 PM CDT Temperature 36.7 C (98 F) 03/13/2025 5:40 PM CDT Respiratory Rate 12 03/13/2025 10:45 PM CDT Oxygen Saturation 93% 03/13/2025 10:50 PM CDT Inhaled Oxygen Concentration - - Weight 113.4 kg (250 lb) 03/13/2025 5:40 PM CDT Height 165.1 cm (5' 5) 03/02/2025 5:23 PM CDT Body Mass Index 41.6 03/02/2025 5:23 PM CDT Plan of Treatment Health Maintenance Due Date Last Done Comments DTaP/Tdap/Td Vaccine (1 - Tdap) 1968 Pneumococcal vaccine 65+ (1 of 2 - PCV) 1976 Zoster Vaccine (1 of 2) 09/21/2007 Influenza Vaccine (#1) 2025 4, 03/09/2019, 03/09/2019, Additional history exists Well Visit 65+ 03/05/2025 03/05/2024 Depression Screening 09/02/2025 09/02/2024, 09/02/2024, 08/21/2024, Additional history exists Osteoporosis Screening-Bone Density Scan 11/16/2025 11/17/2023 Breast Cancer Screening-Mammogram 01/25/2026 025, 11/17/2023 Fall Risk Assessment 01/25/2026 01/25/2025 Colon Cancer Screening-Colonoscopy 06/17/20342024 Hepatitis B Screening Completed 03/05/2024 Hepatitis C Screening Completed 03/05/2024 Procedures Procedure Name Priority Date/Time Associated Diagnosis Comments TROPONIN T HIGH-SENSITIVITY 4-HR Timed 03/13/2025 9:21 PM CDT TROPONIN T HIGH-SENSITIVITY 2-HOUR Timed 03/13/2025 7:43 PM CDT CTA LOWER EXTREMITY BILATERAL ED Urgent/IP Urgent 03/13/2025 7:31 PM CDT XR CHEST 1 VIEW ED 03/13/2025 6:11 PM CDT EGFR STAT 03/13/2025 5:48 PM CDT DIFFERENTIAL AUTO STAT 03/13/2025 5:4 8 PM CDT TROPONIN T HIGH-SENSITIVITY SERIES (BASELINE, 2HR, 4HR, 6HR) STAT 03/13/2025 5:48 PM CDT COMPREHENSIVE METABOLIC PANEL STAT 03/13/2025 5:48 PM CDT CBC WITH AUTO DIFFERENTIAL STAT 03/13/2025 5:48 PM CDT ECG 12-LEAD STAT 03/13/2025 5:46 PM CDT CTA CHEST ABDOMINAL AORTA AND BILATERAL ILIOFEMORAL ED 03/02/2025 11:11 PM CDT EGFR STAT 03/02/2025 10:37 PM CDT DIFFERENTIAL AUTO STAT 03/02/2025 10: 37 PM CDT COMPREHENSIVE METABOLIC PANEL STAT 03/02/2025 10:37 PM CDT CBC WITH AUTO DIFFERENTIAL STAT 03/02/2025 10:37 PM CDT SCREENING MAMMOGRAM BILATERAL W RITO Schedule Routine, Read Routine (OP Routine) 01/25/2025 10:16 AM CDT Breast cancer screening by mammogram HEPATITIS C ANTIBODY Routine 03/05/2024 11:40 AM CDT Screening for viral disease DEXA AXIAL SKELETON BONE DENSITY 1 OR MORE SITES Schedule Routine, Read Routine (OP Routine) 11/17/2023 9:47 AM CDT Post-menopausal from Last 3 Months or Most Recently Relevant to Health Maintenance Results * Troponin T high-sensitivity 4-hour (03/13/2025 9:21 PM CDT) Trop T hs 13 <=14 ng/L Comment: Interpretive Data For further hscTnT resources including the diagnostic algorithm and an aid in interpretation, copy and paste this link: https://nrl.testcatalog.org/show/hsTrop Current Interpretive Data last revised 2020. Trop T hs delta 1 ng/L SONJA Trop T hs interp Insignificant SONJA Blood 03/13/2025 9:21 PM CDT 03/13/2025 9:26 PM CDT us Kingston Galdamez MD LAB BLOOD ORDERABLES Una l Result SONJA [id number] [address] Department [place] [address] * Troponin T high-sensitivity 2-hour (03/13/2025 7:43 PM CDT) Trop T hs 13 <=14 ng/L Comment: Interpretive Data For further hscTnT resources including the diagnostic algorithm and an aid in interpretation, copy and paste this link: https://nrl.testcatalog.org/show/hsTrop Current Interpretive Data last revised 2020. Trop T hs delta 1 ng/L CERNER CH Trop T hs interp Equivocal CERNER CH Blood 03/13/2025 7:43 PM CDT 03/13/2025 8:05 PM CDT us Kingston Galdamez MD LAB BLOOD ORDERABLES Una l Result SONJA SOLANO [address] [address] Department [place] [address] * CTA Lower Extremity Bilateral (03/13/2025 7:31 PM CDT) Anatomical Region Laterality Modality Lower Extremities Bilateral Computed Tomog naman 03/13/2025 7:19 PM CDT Addenda Addendum by Obdulio Mills MD on 03/20/2025 1:16 PM CDT Technique: Transaxial computed tomographic images of the bilateral lower extremities were obtained after the administration of 117 mL intravenous contrast using an AIF protocol. Multiplanar coronal and sagittal images were reformatted. 3D volumetric analysis with MIP images were created on a dedicated workstation. Edited by: Anup Laws Electronically signed by: Obdulio Mills M.D. Impressions 03/14/2025 8:55 AM CDT Short-segment subtotally occluded or occluded mid right posterior tibial artery. Short-segment high-grade stenosis or subtotal occluded proximal left posterior tibial artery. Remainder of the left posterior tibial artery vessel beyond the mid segment is severely diminutive in caliber. Severe grade stenosis/subtotal occlusion of the left anterior tibial artery at the ankle joint. Otherwise remainder the vessel is unremarkable. Short-segment mild grade distal left femoral/proximal popliteal artery stenosis. Stat report by [facility] discrepancy noted in description of distal runoff.. Electronically signed by: Obdulio Mills M.D. Narrative 03/14/2025 8:55 AM CDT EXAMINATION: CTA LOWER EXTREMITY BILATERAL Date: 03/13/2025 6:55 PM History: PAD, worsening bilateral lower extremity pain Technique: Transaxial computed tomographic images of the abdomen, pelvis, and lower extremities were obtained after the administration of 117 mL intravenous contrast using an AIF protocol. Multiplanar coronal and sagittal images were reformatted. 3D volumetric analysis with MIP images were created on a dedicated workstation. COMPARISON: 03/02/2025 FINDINGS: Right iliac arteries: No occlusion or significant stenosis. Right femoral/popliteal arteries: No occlusion or significant stenosis. Right infrapopliteal arteries: No occlusion or significant stenosis anterior tibial or peroneal artery. Short-segment occluded or subtotally occluded mid right posterior tibial artery, Remainder of the vessel is unremarkable. Left iliac arteries: No occlusion or significant stenosis. Left femoral/popliteal arteries: Short-segment mild stenosis of the distal femoral or proximal popliteal artery at the adductor canal or just beyond the adductor canal, series 4 image 487. No severe grade stenosis or occlusion of the left femoral or popliteal artery. Left infrapopliteal arteries: Variant left infrapopliteal artery anatomy with the left peroneal artery arising from the proximal posterior tibial artery. No significant grade stenosis of the left peroneal artery. Short-segment of the high-grade stenosis or subtotally occluded proximal posterior tibial artery just beyond the peroneal artery takeoff as noted on the previous study. There is also gradual tapering of the vessel beyond the proximal segment with only faint trickle of contrast visualized throughout the remainder of the vessel which crosses the ankle providing blood flow to the plantar artery. The left anterior tibial artery is relatively unremarkable throughout its course except for at the ankle joint where there is a high-grade stenosis subtotal occlusion of the vessel . Left dorsalis pedis is only faintly enhanced with contrast. Procedure Note Obdulio Mills MD - 03/14/2025 EXAMINATION: CTA LOWER EXTREMITY BILATERAL Date: 03/13/2025 6:55 PM History: PAD, worsening bilateral lower extremity pain Technique: Transaxial computed tomographic images of the abdomen, pelvis, and lower extremities were obtained after the administration of 117 mL intravenous contrast using an AIF protocol. Multiplanar coronal and sagittal images were reformatted. 3D volumetric analysis with MIP images were created on a dedicated workstation. COMPARISON: 03/02/2025 FINDINGS: Right iliac arteries: No occlusion or significant stenosis. Right femoral/popliteal arteries: No occlusion or significant stenosis. Right infrapopliteal arteries: No occlusion or significant stenosis anterior tibial or peroneal artery. Short-segment occluded or subtotally occluded mid right posterior tibial artery, Remainder of the vessel is unremarkable. Left iliac arteries: No occlusion or significant stenosis. Left femoral/popliteal arteries: Short-segment mild stenosis of the distal femoral or proximal popliteal artery at the adductor canal or just beyond the adductor canal, series 4 image 487. No severe grade stenosis or occlusion of the left femoral or popliteal artery. Left infrapopliteal arteries: Variant left infrapopliteal artery anatomy with the left peroneal artery arising from the proximal posterior tibial artery. No significant grade stenosis of the left peroneal artery. Short-segment of the high-grade stenosis or subtotally occluded proximal posterior tibial artery just beyond the peroneal artery takeoff as noted on the previous study. There is also gradual tapering of the vessel beyond the proximal segment with only faint trickle of contrast visualized throughout the remainder of the vessel which crosses the ankle providing blood flow to the plantar artery. The left anterior tibial artery is relatively unremarkable throughout its course except for at the ankle joint where there is a high-grade stenosis subtotal occlusion of the vessel . Left dorsalis pedis is only faintly enhanced with contrast. IMPRESSION: Short-segment subtotally occluded or occluded mid right posterior tibial artery. Short-segment high-grade stenosis or subtotal occluded proximal left posterior tibial artery. Remainder of the left posterior tibial artery vessel beyond the mid segment is severely diminutive in caliber. Severe grade stenosis/subtotal occlusion of the left anterior tibial artery at the ankle joint. Otherwise remainder the vessel is unremarkable. Short-segment mild grade distal left femoral/proximal popliteal artery stenosis. Stat report by [facility] discrepancy noted in description of distal runoff.. Electronically signed by: Obdulio Mills M.D. us Kingston Galdamez MD IMG CT PROCEDURES Edited Result - Final * XR Chest 1 Vw Portable (If patient hemodynamically UNstable or UNable to ambulate) (03/13/2025 6:11PM CDT) Anatomical Region Laterality Modality Body, Chest N/A Computed Radiogr aphy 03/13/2025 7:38 PM CDT Impressions 03/13/2025 7:38 PM CDT No active disease. Electronically signed by: Jad José M.D. Narrative 03/13/2025 7:38 PM CDT EXAMINATION: XR CHEST 1 VIEW HISTORY: The patient is a 69-year-old female who presents with chest pain. Comparison is made with the previous study dated 10/16/2024. TECHNIQUE: AP portable view of the chest. FINDINGS: Lungs clear. Cardiovascular structures unremarkable. Procedure Note Jad José MD - 03/13/2025 EXAMINATION: XR CHEST 1 VIEW HISTORY: The patient is a 69-year-old female who presents with chest pain. Comparison is made with the previous study dated 10/16/2024. TECHNIQUE: AP portable view of the chest. FINDINGS: Lungs clear. Cardiovascular structures unremarkable. IMPRESSION: No active disease. Electronically signed by: Jad José M.D. Kingston Galdamez MD IMG XR PROCEDURES Final R esult * Troponin T high-sensitivity series (baseline, 2hr, 4hr, 6hr) (03/13/2025 5:48 PM CDT) Trop T hs 12 <=14 ng/L Comment: Interpretive Data For further hscTnT resources including the diagnostic algorithm and an aid in interpretation, copy and paste this link: [email or web address].testcatalog.org/show/[email or web address] Current Interpretive Data last revised 2020. Blood 03/13/2025 5:48 PM CDT 03/13/2025 6:05 PM CDT Kingston Galdamez MD LAB BLOOD ORDERABLES Edit ed Result - Final [facility] [id number] [place] [address] * eGFR (03/13/2025 5:48 PM CDT) Pathologist [facility] eGFR 77 >=60 mL/min/1. 73 m2 Comment: Interpretive Data Reference Interval Normal >/= 90 mL/min/1.73m2 Mildly decreased* 60 - 89 mL/min/1.73m2 Mildly to moderately decreased 45 - 59 mL/min/1.73m2 Moderately to severely decreased 30 - 44 mL/min/1.73m2 Severely decreased 15 - 29 mL/min/1.73m2 Kidney Failure < 15 mL/min/1.73m2 *Relative to young adult level Estimated glomerular filtration rate is determined by the 2020 CKD-EPI equation recommended by the National Kidney [employer] (A Unifying Approach to GFR Estimation: Recommendations of the NKF-ASK Task Force on Reassessing the Inclusion of Race in Diagnosing Kidney Disease, JASN 2020). The CKD-EPI equation should not be used for patients with unstable renal function and has not been validated in children and those over 70. Current interpretive data was last reviewed 2021. Blood 03/13/2025 5:48 PM CDT 03/13/2025 6:05 PM CDT us Kingston Galdamez MD LAB BLOOD ORDERABLES Una parson Result [facility] [id number] Department [place] [address] * Differential, auto (03/13/2025 5:48 PM CDT) Pathologist [facility] Neutrophil abs 4.29 1.50 - 6.50 K/cumm Imm gran abs 0.03 0.00 - 0.10 K/cumm [facility] Lymphocyte abs 2.23 0.80 - 3.30 K/cumm [facility] Monocyte abs 0.48 0.20 - 0.80 K/cumm [facility] Eosinophil abs 0.13 0.00 - 0.50 K/cumm [facility] Basophil abs 0.03 0.00 - 0.10 K/cumm [facility] Neutrophil pct 59.7 % [facility] Comment: Interpretive Data Percent cell count reference ranges are not reported, since discordance with absolute values may lead to misinterpretation of CBC data. Current Interpretive Data was last revised on 2017. Imm gran pct 0.4 % [facility] Comment: Interpretive Data Percent cell count reference ranges are not reported, since discordance with absolute values may lead to misinterpretation of CBC data. Current Interpretive Data was last revised on 2017. Lymphocyte pct 31.0 % [facility] Comment: Interpretive Data Percent cell count reference ranges are not reported, since discordance with absolute values may lead to misinterpretation of CBC data. Current Interpretive Data was last revised on 2017. Monocyte pct 6.7 % [facility] Comment: Interpretive Data Percent cell count reference ranges are not reported, since discordance with absolute values may lead to misinterpretation of CBC data. Current Interpretive Data was last revised on 2017. Eosinophil pct 1.8 % [facility] Comment: Interpretive Data Percent cell count reference ranges are not reported, since discordance with absolute values may lead to misinterpretation of CBC data. Current Interpretive Data was last revised on 2017. Basophil pct 0.4 % [facility] Comment: Interpretive Data Percent cell count reference ranges are not reported, since discordance with absolute values may lead to misinterpretation of CBC data. Current Interpretive Data was last revised on 2017. Blood 03/13/2025 5:48 PM CDT 03/13/2025 6:05 PM CDT us Kingston aGldamez MD LAB BLOOD ORDERABLES Una l Result [facility] [id number] Department [place] [address] * (ABNORMAL) CBC with auto differential (03/13/2025 5:48 PM CDT) WBC 7.19 3.80 - 9.90 K/cumm Hgb 15.1 11.9 - 15.5 g/dL [facility] Hct 44.9 35.6 - 45.5 % [facility] Plt 223 150 - 400 K/cumm [facility] MPV 9.2 9.1 - 12.3 fL [facility] RBC 5.29(H) 3.90 - 5.20 M/cumm [facility] MCV 84.9 81.3 - 96.4 fL [facility] MCH 28.5 27.1 - 33.3 pg [facility] MCHC 33.6 32.3 - 35.7 g/dL [facility] R[facility] CV 13.4 11.1 - 14.9 % [facility] RDW SD 41.6 35.7 - 48.1 fL [facility] NRBC abs 0.00 0.00 - 0.01 K/cumm [facility] Blood Venous blood specimen / Unknown 03/13/2025 5:48 PM CDT 03/13/2025 6:05 PM CDT Kingston Galdamez MD LAB BLOOD ORDERABLES Una parson Result [facility] [address] [place] [address] * Comprehensive metabolic panel (03/13/2025 5:48 PM CDT) Sodium 143 135 - 145 mmol/L Potassium, pl 4.0 3.3 - 4.9 mmol/L [facility] Chloride 102 97 - 110 mmol/L [facility] CO2 26 22 - 32 mmol/L [facility] Anion gap 15 2 - 15 mmol/L [facility] BUN 13 6 - 25 mg/dL [facility] Creatinine 0.83 0.60 - 1.10 mg/dL [facility] Glucose 138 70 - 199 mg/dL [facility] Comment: Interpretive Data Fasting glucose >/= 126 mg/dl is diagnostic for diabetes. Fasting is defined as no caloric intake for at least 8 hours. Fasting glucose between 100 mg/dl to 125 mg/dl is diagnostic of prediabetes. In a patient with classic symptoms of hyperglycemia or hyperglycemic crisis, a random glucose >/= 200 mg/dl is diagnostic for diabetes. In the absence of unequivocal hyperglycemia, results should be confirmed by repeat testing. The classification and Diagnosis of Diabetes Diabetes Care 2021; 46: S19-S40. Current interpretive data was last revised 2022. Calcium 9.8 8.5 - 10.3 mg/dL [facility] Bilirubin, total 0.6 0.1 - 1.2 mg/dL [facility] Protein, pl 7.0 6.5 - 8.5 g/dL [facility] Albumin 4.2 3.5 - 5.0 g/dL [facility] Alk phos 80 40 - 130 Units/L [facility] ALT 27 7 - 45 Units/L [facility] AST 40 10 - 45 Units/L [facility] Blood 03/13/2025 5:48 PM CDT 03/13/2025 6:05 PM CDT Kingston Galdamez MD LAB BLOOD ORDERABLES Una l Result Performing Organization Address City/[facility] Co de Phone Number [facility] [id number] [place] [address] * ECG 12 lead (03/13/2025 5:46 PM CDT) 03/13/2025 5:46 PM CDT Narrative [facility] - 03/15/2025 9:01 AM CDT Vent Rate: 80 bpm RR Interval: 744 msec ME Interval: 135 msec QRS Duration: 93 msec QT Interval: 367 msec QTC Interval: 403 msec P-R-T [place]: 62 - 62 - 11 degrees IMPRESSION: SINUS RHYTHM WITH SINUS ARRHYTHMIA NONSPECIFIC ST \T\ T-WAVE ABNORMALITY BORDERLINE ECG Electronically Signed By: Dr. Tito Pizarro [facility] Kingston Galdamez MD ECG ORDERABLES Final Res ult Performing Organization Address City/[facility]/ZIP Co de Phone Number [employer] [facility] * CTA Chest Abdominal Aorta and Bilateral Iliofemoral (03/02/2025 11:11 PM CDT) Anatomical Region Laterality Modality Body N/A Computed Tomogra phy 03/02/2025 11:0 4 PM CDT Impressions 03/03/2025 8:04 AM CDT 1. No sign of pulmonary emboli or acute aortic change. Enlarged hilar and mediastinal lymph nodes with mild peribronchial thickening 2. Short-segment high-grade stenosis or subtotal occluded proximal left posterior tibial artery. Remainder of the left posterior tibial artery vessel beyond the mid segment is severely diminutive in caliber. Severe grade stenosis/subtotal occlusion of the left anterior tibial artery at the ankle joint. Otherwise remainder the vessel is unremarkable. 3. Short-segment mild grade distal femoral/proximal popliteal artery stenosis. 4. Short-segment subtotally occluded or occluded mid right posterior tibial artery. 5. Other nonemergent/incidental findings as described above. Stat report by [facility] Electronically signed by: Obdulio Mills M.D. Narrative 03/03/2025 8:04 AM CDT EXAMINATION: CTA CHEST ABDOMINAL AORTA AND BILATERAL ILIOFEMORAL Date: 03/02/2025 11:05 PM History: rest pain, numbness, weakness, LLE x 3 days; hx PAD Technique: Transaxial computed tomographic images of the abdomen, pelvis, and lower extremities were obtained after the administration of 125 mL intravenous contrast using an AIF protocol. Multiplanar coronal and sagittal images were reformatted. 3D volumetric analysis with MIP images were created on a dedicated workstation. Pulmonary arteries: Normal. No pulmonary emboli. Aorta: No aortic aneurysm. No aortic dissection. Lungs: Mild peribronchial thickening. No consolidation. No mass. Pleural spaces: No pneumothorax. No pleural effusion. Heart: No cardiomegaly. No pericardial effusion. Lymph nodes: A few mildly enlarged mediastinal and hilar lymph nodes measuring up to 1.1 cm in short axis. Celiac and mesenteric arteries: No occlusion or significant stenosis. Renal arteries: No occlusion or significant stenosis. Right iliac arteries: No occlusion or significant stenosis. Right femoral/popliteal arteries: No occlusion or significant stenosis. Right infrapopliteal arteries: No occlusion or significant stenosis anterior tibial or peroneal artery. Short-segment occluded or subtotally occluded mid right posterior tibial artery, image 1166/axial series 4 and image 56/coronal series 6. Remainder of the vessel is unremarkable. Left iliac arteries: No occlusion or significant stenosis. Left femoral/popliteal arteries: Short-segment mild stenosis of the distal femoral or proximal popliteal artery at the adductor canal or just beyond the adductor canal, image 48/coronal series 6. No severe grade stenosis or occlusion of the left femoral or popliteal artery. Left infrapopliteal arteries: Variant left infrapopliteal artery anatomy with the left peroneal artery arising from the proximal posterior tibial artery. No significant grade stenosis of the left peroneal artery. Short-segment of the high-grade stenosis or subtotally occluded proximal posterior tibial artery just beyond the peroneal artery takeoff present, image [id number]/axial series 4. There is also gradual tapering of the vessel beyond the proximal segment with only faint trickle of contrast visualized throughout the remainder of the vessel which crosses the ankle providing blood flow to the plantar artery. The left anterior tibial artery is relatively unremarkable throughout its course except for at the ankle joint where there is a high-grade stenosis subtotal occlusion of the vessel, image [id number] axial series 4 and image 89-90/sagittal series 8. Left dorsalis pedis is enhanced with contrast. Liver: No mass. Gallbladder and biliary ducts: Unremarkable. No calcified stones. No ductal dilation. Pancreas: Unremarkable. No mass. No ductal dilation. Spleen: Mild splenomegaly, 13.9 cm. Adrenal glands: Normal. No mass. Kidneys and ureters: Normal. No mass. Stomach and bowel: There is scattered colonic diverticulosis. No acute diverticulitis. No small bowel or colonic mucosal thickening. Appendix: No evidence of appendicitis. Urinary bladder: Unremarkable. No mass. Reproductive: Unremarkable as visualized. Intraperitoneal space: Unremarkable. No free air. No significant fluid collection. Lymph nodes: No lymphadenopathy. Bones/joints: No acute fracture. No dislocation. Procedure Note Obdulio Milsl MD - 03/03/2025 EXAMINATION: CTA CHEST ABDOMINAL AORTA AND BILATERAL ILIOFEMORAL Date: 03/02/2025 11:05 PM History: rest pain, numbness, weakness, LLE x 3 days; hx PAD Technique: Transaxial computed tomographic images of the abdomen, pelvis, and lower extremities were obtained after the administration of 125 mL intravenous contrast using an AIF protocol. Multiplanar coronal and sagittal images were reformatted. 3D volumetric analysis with MIP images were created on a dedicated workstation. Pulmonary arteries: Normal. No pulmonary emboli. Aorta: No aortic aneurysm. No aortic dissection. Lungs: Mild peribronchial thickening. No consolidation. No mass. Pleural spaces: No pneumothorax. No pleural effusion. Heart: No cardiomegaly. No pericardial effusion. Lymph nodes: A few mildly enlarged mediastinal and hilar lymph nodes measuring up to 1.1 cm in short axis. Celiac and mesenteric arteries: No occlusion or significant stenosis. Renal arteries: No occlusion or significant stenosis. Right iliac arteries: No occlusion or significant stenosis. Right femoral/popliteal arteries: No occlusion or significant stenosis. Right infrapopliteal arteries: No occlusion or significant stenosis anterior tibial or peroneal artery. Short-segment occluded or subtotally occluded mid right posterior tibial artery, image 1166/axial series 4 and image 56/coronal series 6. Remainder of the vessel is unremarkable. Left iliac arteries: No occlusion or significant stenosis. Left femoral/popliteal arteries: Short-segment mild stenosis of the distal femoral or proximal popliteal artery at the adductor canal or just beyond the adductor canal, image 48/coronal series 6. No severe grade stenosis or occlusion of the left femoral or popliteal artery. Left infrapopliteal arteries: Variant left infrapopliteal artery anatomy with the left peroneal artery arising from the proximal posterior tibial artery. No significant grade stenosis of the left peroneal artery. Short-segment of the high-grade stenosis or subtotally occluded proximal posterior tibial artery just beyond the peroneal artery takeoff present, image [id number]/axial series 4. There is also gradual tapering of the vessel beyond the proximal segment with only faint trickle of contrast visualized throughout the remainder of the vessel which crosses the ankle providing blood flow to the plantar artery. The left anterior tibial artery is relatively unremarkable throughout its course except for at the ankle joint where there is a high-grade stenosis subtotal occlusion of the vessel, image [id number] axial series 4 and image 89-90/sagittal series 8. Left dorsalis pedis is enhanced with contrast. Liver: No mass. Gallbladder and biliary ducts: Unremarkable. No calcified stones. No ductal dilation. Pancreas: Unremarkable. No mass. No ductal dilation. Spleen: Mild splenomegaly, 13.9 cm. Adrenal glands: Normal. No mass. Kidneys and ureters: Normal. No mass. Stomach and bowel: There is scattered colonic diverticulosis. No acute diverticulitis. No small bowel or colonic mucosal thickening. Appendix: No evidence of appendicitis. Urinary bladder: Unremarkable. No mass. Reproductive: Unremarkable as visualized. Intraperitoneal space: Unremarkable. No free air. No significant fluid collection. Lymph nodes: No lymphadenopathy. Bones/joints: No acute fracture. No dislocation. IMPRESSION: 1. No sign of pulmonary emboli or acute aortic change. Enlarged hilar and mediastinal lymph nodes with mild peribronchial thickening 2. Short-segment high-grade stenosis or subtotal occluded proximal left posterior tibial artery. Remainder of the left posterior tibial artery vessel beyond the mid segment is severely diminutive in caliber. Severe grade stenosis/subtotal occlusion of the left anterior tibial artery at the ankle joint. Otherwise remainder the vessel is unremarkable. 3. Short-segment mild grade distal femoral/proximal popliteal artery stenosis. 4. Short-segment subtotally occluded or occluded mid right posterior tibial artery. 5. Other nonemergent/incidental findings as described above. Stat report by [facility] Electronically signed by: Obdulio Mills M.D. Mulu Juan MD IMG CT PROCEDURE S Final Result * eGFR (03/02/2025 10:37 PM CDT) eGFR 81 >=60 mL/min/1. 73 m2 Comment: Interpretive Data Reference Interval Normal >/= 90 mL/min/1.73m2 Mildly decreased* 60 - 89 mL/min/1.73m2 Mildly to moderately decreased 45 - 59 mL/min/1.73m2 Moderately to severely decreased 30 - 44 mL/min/1.73m2 Severely decreased 15 - 29 mL/min/1.73m2 Kidney Failure < 15 mL/min/1.73m2 *Relative to young adult level Estimated glomerular filtration rate is determined by the 2020 CKD-EPI equation recommended by the National Kidney Foundation (A Unifying Approach to GFR Estimation: Recommendations of the NKF-ASK Task Force on Reassessing the Inclusion of Race in Diagnosing Kidney Disease, JASN 2020). The CKD-EPI equation should not be used for patients with unstable renal function and has not been validated in children and those over 70. Current interpretive data was last reviewed 2021. Blood 03/02/2025 10:3 7 PM CDT 03/02/2025 10:47 PM CDT Mulu Juan MD LAB BLOOD ORDERA BLES Final Result [facility] [id number] Department [place] [address] * Differential, auto (03/02/2025 10:37 PM CDT) Neutrophil abs 3.69 1.50 - 6.50 K/cumm Imm gran abs 0.02 0.00 - 0.10 K/cumm [facility] Lymphocyte abs 2.50 0.80 - 3.30 K/cumm [facility] Monocyte abs 0.71 0.20 - 0.80 K/cumm [facility] Eosinophil abs 0.16 0.00 - 0.50 K/cumm [facility] Basophil abs 0.04 0.00 - 0.10 K/cumm [facility] Neutrophil pct 51.8 % [facility] Comment: Interpretive Data Percent cell count reference ranges are not reported, since discordance with absolute values may lead to misinterpretation of CBC data. Current Interpretive Data was last revised on 2017. Imm gran pct 0.3 % [facility] Comment: Interpretive Data Percent cell count reference ranges are not reported, since discordance with absolute values may lead to misinterpretation of CBC data. Current Interpretive Data was last revised on 2017. Lymphocyte pct 35.1 % [facility] Comment: Interpretive Data Percent cell count reference ranges are not reported, since discordance with absolute values may lead to misinterpretation of CBC data. Current Interpretive Data was last revised on 2017. Monocyte pct 10.0 % [facility] Comment: Interpretive Data Percent cell count reference ranges are not reported, since discordance with absolute values may lead to misinterpretation of CBC data. Current Interpretive Data was last revised on 2017. Eosinophil pct 2.2 % [facility] Comment: Interpretive Data Percent cell count reference ranges are not reported, since discordance with absolute values may lead to misinterpretation of CBC data. Current Interpretive Data was last revised on 2017. Basophil pct 0.6 % [facility] Comment: Interpretive Data Percent cell count reference ranges are not reported, since discordance with absolute values may lead to misinterpretation of CBC data. Current Interpretive Data was last revised on 2017. Blood 03/02/2025 10:3 7 PM CDT 03/02/2025 10:47 PM CDT Mulu Juan MD LAB BLOOD ORDERA BLES Final Result [facility] [address] [place] [address] * CBC with auto differential (03/02/2025 10:37 PM CDT) WBC 7.12 3.80 - 9.90 K/cumm Hgb 14.3 11.9 - 15.5 g/dL [facility] Hct 43.0 35.6 - 45.5 % [facility] Plt 205 150 - 400 K/cumm [facility] MPV 9.7 9.1 - 12.3 fL [facility] RBC 5.11 3.90 - 5.20 M/cumm [facility] MCV 84.1 81.3 - 96.4 fL [facility] MCH 28.0 27.1 - 33.3 pg [facility] MCHC 33.3 32.3 - 35.7 g/dL [facility] RDW CV 13.4 11.1 - 14.9 % [facility] RDW SD 41.5 35.7 - 48.1 fL [facility] NRBC abs 0.00 0.00 - 0.01 K/cumm [facility] Blood 03/02/2025 10:3 7 PM CDT 03/02/2025 10:47 PM CDT Mulu Juan MD LAB BLOOD ORDERA BLES Final Result Performing Organization Address City/[facility]/ZIP Co de Phone Number [facility] [address] [place] [address] * Comprehensive metabolic panel (03/02/2025 10:37 PM CDT) Sodium 140 135 - 145 mmol/L Potassium, pl 3.8 3.3 - 4.9 mmol/L [facility] Chloride 100 97 - 110 mmol/L [facility] CO2 26 22 - 32 mmol/L [facility] Anion gap 14 2 - 15 mmol/L [facility] BUN 12 6 - 25 mg/dL [facility] Creatinine 0.80 0.60 - 1.10 mg/dL [facility] Glucose 84 70 - 199 mg/dL [facility] Comment: Interpretive Data Fasting glucose >/= 126 mg/dl is diagnostic for diabetes. Fasting is defined as no caloric intake for at least 8 hours. Fasting glucose between 100 mg/dl to 125 mg/dl is diagnostic of prediabetes. In a patient with classic symptoms of hyperglycemia or hyperglycemic crisis, a random glucose >/= 200 mg/dl is diagnostic for diabetes. In the absence of unequivocal hyperglycemia, results should be confirmed by repeat testing. The classification and Diagnosis of Diabetes Diabetes Care 2021; 46: S19-S40. Current interpretive data was last revised 2022. Calcium 9.7 8.5 - 10.3 mg/dL [facility] Bilirubin, total 0.6 0.1 - 1.2 mg/dL [facility] Protein, pl 7.2 6.5 - 8.5 g/dL [facility] Albumin 4.4 3.5 - 5.0 g/dL [facility] Alk phos 78 40 - 130 Units/L [facility] ALT 24 7 - 45 Units/L [facility] AST 35 10 - 45 Units/L [facility] Blood 03/02/2025 10:3 7 PM CDT 03/02/2025 10:47 PM CDT us Mulu Juan MD LAB BLOOD ORDERA BLES Final Result [facility] [address] Department [place] [address] * Screening Mammogram Bilateral W Rito (01/25/2025 10:16 AM CDT) Anatomical Region Laterality Modality Breast Bilateral Mammography Impressions 01/25/2025 1:42 PM CDT Bilateral No evidence of malignancy in either breast. OVERALL BI-RADS FINAL ASSESSMENT: 1 - Negative RECOMMENDATION: Recommend bilateral annual screening mammography. Narrative 01/25/2025 1:42 PM CDT EXAMINATION: Screening Mammogram Bilateral W Rito: 01/25/2025 COMPARISON: Relevant prior studies available at the time of interpretation were reviewed, including the most recent mammogram on: 11/17/2023, 07/05/2022, and 11/27/2018. TECHNIQUE: Mammography was performed with 2D and 3D digital breast tomosynthesis (DBT) images. CAD was utilized. BREAST PARENCHYMAL COMPOSITION: The breasts are almost entirely fatty. FINDINGS: Bilateral There is no suspicious mass, calcification, or architectural distortion in either breast. Nicole Dumont NP IMG MAMMO PROCEDURES Final Result * Hepatitis C antibody Blood (03/05/2024 11:40 AM CDT) Hep C Ab Nonreactive Nonreactive Comment: Interpretive Data Nonreactive: Antibodies to HCV not detected. Does NOT exclude the possibility of recent exposure to HCV. Equivocal: Equivocal for HCV antibodies. Supplemental molecular testing will be automatically performed to determine infection status in accordance with current CDC screening recommendations. Reactive: Positive for HCV antibodies. This may represent current or past HCV infection. Supplemental molecular testing will be automatically performed to determine current infection status in accordance with current CDC screening recommendations. Interpretive data was last revised on 2019. Blood 03/05/2024 11:4 0 AM CDT 03/05/2024 5:08 PM CDT Nicole Dumont NP LAB MICROBIOLOGY - GENERAL ORDERABLES Final Result [facility] [id number] Department of Laboratories [place], [place] [id number] * Dexa Axial Skeleton Bone Density 1 or 2 Site (11/17/2023 9:47 AM CDT) Anatomical Region Laterality Modality Body N/A Other 11/17/2023 11:4 8 AM CDT Impressions 11/17/2023 11:48 AM CDT Normal bone mineral density of lumbar spine and left hip Electronically signed by: Obdulio Mills M.D. Narrative 11/17/2023 11:48 AM CDT Examination: DEXA AXIAL SKELETON BONE DENSITY 1 OR MORE SITES Date: 11/17/2023 9:00 AM History: Osteoporosis screening. Comparison: None. Findings: The bone densitometry of the L1-L4 region, the left femoral neck and the total left hip was calculated using dual-energy x-ray absorptiometry. Summary: Bone mineral density (BMD) of the lumbar spine (L1-4): T-score 2.1; 122% of normal Bone mineral density (BMD) of the total left hip: T-score 2.3; 130% of normal Bone mineral density (BMD) of the left femoral neck: T-score 1.9; 125% of normal Procedure Note Obdulio Mills MD - 11/17/2023 Examination: DEXA AXIAL SKELETON BONE DENSITY 1 OR MORE SITES Date: 11/17/2023 9:00 AM History: Osteoporosis screening. Comparison: None. Findings: The bone densitometry of the L1-L4 region, the left femoral neck and the total left hip was calculated using dual-energy x-ray absorptiometry. Summary: Bone mineral density (BMD) of the lumbar spine (L1-4): T-score 2.1; 122% of normal Bone mineral density (BMD) of the total left hip: T-score 2.3; 130% of normal Bone mineral density (BMD) of the left femoral neck: T-score 1.9; 125% of normal IMPRESSION: Normal bone mineral density of lumbar spine and left hip Electronically signed by: Obdulio Mills M.D. Luca Jensen NP IMG DXA PROCEDURES Final Resu lt from Last 3 Months or Most Recently Relevant to Health Maintenance Insurance [employer] [facility] MEDICARE ADVANTAGE [facility] MEDICARE ADVANTAGE [employer] Advance Directives For more information, please contact: [phone] * Full Code (Latest Code Status on File) Date Activated Date Inactivated Comments 09/03/2024 3:08 AM 09/04/2024 5:54 PM * Full Code Date Activated Date Inactivated Comments 08/21/2024 11:58 PM 08/24/2024 6:34 PM * Full Code Date Activated Date Inactivated Comments 03/05/2023 6:33 PM 03/13/2023 10:25 PM * Full Code Date Activated Date Inactivated Comments 03/05/2023 6:00 PM 03/05/2023 6:33 PM Care Teams Inspector Barrel Relationship Specialty [place] [id number] [address] [place] [address] PCP - General Family Medicine 10/14/23 [place] [id number] [address] [place] [address] Consulting Physician Cardiovascular Disease 03/13/23 [place] [id number] [address] [place] [address] Consulting Physician Pain Management 03/13/23 [place] [address] [address] [place] [address] Nurse Practitioner Nurse Practitioner 07/20/24
== END 2025-03-28 11:57 | disposition home or self-care (01) ==
LOC: ANHLAB 12:09
PROVIDERS: PCP Physician Assistant; Visit Provider Internal Medicine Cardiovascular Disease
DX: I70.222 Atherosclerosis of native arteries of extremities with rest pain, left leg (principal); I10 Essential (primary) hypertension
CPT/HCPCS: 36415; 80048; 85027; 85610